=== PATIENT | female | born 1985 ===

== ENCOUNTER 2019-02-25 15:00 | Inpatient (IN) | payer OTHER ==
[~2019-02-25] VITALS: Ht 165.1 cm; Wt 74.4 kg
[2019-03-17] MEDS ORDERED: PRENATABS RX T1 EACH PO (21:49)
== END 2019-03-20 14:59 | disposition home or self-care (01) | DRG 768 ==
LOC: LDR 03-17 18:56 → OB/GYN 03-17 18:56 → LDR 03-17 19:29 → OB/GYN 03-18 21:12
PROVIDERS: ADMIT Obstetrics & Gynecology
PROC: 10E0XZZ Delivery of Products of Conception, External Approach (ICD-10-PCS; principal; 2019-03-17)
PROC: 0DQR0ZZ Repair Anal Sphincter, Open Approach (ICD-10-PCS; 2019-03-17)
PROC: 3E0P7VZ Introduction of Hormone into Female Reproductive, Via Natural or Artificial Opening (ICD-10-PCS; 2019-03-17)
PROC: 3E033VJ Introduction of Other Hormone into Peripheral Vein, Percutaneous Approach (ICD-10-PCS; 2019-03-17)
PROC: 10907ZC Drainage of Amniotic Fluid, Therapeutic from Products of Conception, Via Natural or Artificial Opening (ICD-10-PCS; 2019-03-17)
PROC: 4A1HXCZ Monitoring of Products of Conception, Cardiac Rate, External Approach (ICD-10-PCS; 2019-03-17)
DX: O70.21 Third degree perineal laceration during delivery, IIIa (principal); Z37.0 Single live birth; Z3A.38 38 weeks gestation of pregnancy

== ENCOUNTER 2024-04-22 14:38 | Outpatient (CLI) | payer OTHER ==
[~2024-04-22 14:38] MED LIST: PRENATABS RX T1 EACH PO
== END 2024-04-22 14:40 | disposition home or self-care (01) ==
LOC: PRENATAL 14:38
PROVIDERS: ATTEND Obstetrics & Gynecology Maternal & Fetal Medicine
DX: O44.00 Complete placenta previa NOS or without hemorrhage, unspecified trimester (principal); O09.529 Supervision of elderly multigravida, unspecified trimester; Z3A.21 21 weeks gestation of pregnancy

== ENCOUNTER → 2024-07-08 14:32 | Outpatient (CLI) | payer OTHER | END | disposition home or self-care (01) | LOC: PRENATAL 14:32 | PROVIDERS: ATTEND Obstetrics & Gynecology Maternal & Fetal Medicine | DX: O26.849 Uterine size-date discrepancy, unspecified trimester (principal); O36.8199 Decreased fetal movements, unspecified trimester, other fetus; O09.529 Supervision of elderly multigravida, unspecified trimester; O99.019 Anemia complicating pregnancy, unspecified trimester; Z3A.33 33 weeks gestation of pregnancy ==

== ENCOUNTER 2024-08-19 13:45 | Inpatient (IN) | payer OTHER ==
[~2024-08-19] VITALS: Ht 165.1 cm; Wt 74.8 kg
[2024-08-26] VITALS (10 sets, daily range): BP systolic 111–137; BP diastolic 56–68
[2024-08-26] MEDS ORDERED: RINGERS SOLUTION,LACTATED 1,000 ML IV SCH (06:30)
[2024-08-26] MEDS ORDERED: OXYTOCIN 20 UNITS/500ML RL PIGGYBAG IV ONE (07:11)
[2024-08-26] MEDS ORDERED: FOLIC ACID0.4 MG PO (07:14)
[2024-08-26] MEDS ORDERED: IRON236 MG PO (07:14)
[2024-08-26] MEDS ORDERED: PROBIOTIC250 MG PO (07:14)
[2024-08-26 07:27] LABS: PH,URINE 6.5 (5.0-8.0); URINE APPEARANCE Cloudy; URINE BILIRRUBIN Negative (NEGATIVE); URINE BLOOD Negative; URINE COLOR Yellow; URINE GLUCOSE Negative (NEGATIVE); URINE KETONE Negative (NEGATIVE); URINE LEUKOCYTE Large; URINE NITRATE Negative; URINE PROTEIN Trace (NEGATIVE); URINE UROBILINOGEN 0.2 E.U./dl
[2024-08-26] MEDS ORDERED: OXYTOCIN 500 ML IV SCH (07:30)
[2024-08-26 07:31] LABS: URINE EPITHELIAL CELLS 86.7 uL (0.0-38.8); URINE WBC 671.4 uL (0.0-23.2)
[2024-08-26 07:40] LABS: BASO % 0.5 % (0.1-1.2); EOS # 0.06 (0.04-0.54); HEMATOCRIT 31.9 % (34.1-44.9); LYMPH # 1.53 (1.18-3.74); MEAN CORPUSCULAR HEMOGLOBIN 28.7 pg (25.6-32.2); MONO # 0.43 (0.24-0.82); MONO % 7.3 % (4.7-12.5); NEUT # 3.72 (1.56-6.13); NEUT % 63.3 % (34.0-71.1); PLATELET COUNT 171 K/uL (163-369); RED BLOOD COUNT 3.49 M/uL (3.93-5.22); RED CELL DISTRIBUTION WIDTH 17.7 % (11.6-14.4)
[2024-08-26 07:42] LABS: URINE CAST 0.73 uL (0.0-1.40)
[2024-08-26 08:03] LABS: INR 0.95; PARTIAL THROMBOPLASTIN TIME 24.4 SECONDS (22.0-34.0); PROTHROMBIN TIME 10.4 SECONDS (9.0-11.5)
[2024-08-26 08:13] LABS: ALBUMIN 2.6 gm/dL (3.4-5.0); BILIRUBIN TOTAL 0.27 mg/dL (0.3-1.2); CALCIUM 8.8 mg/dL (8.5-10.1); CREATININE SERUM 0.79 mg/dL (0.55-1.02); GFR 81.89; GLOBULINA 3.2 G/DL (2.4-3.5); POTASSIUM 4.07 mEq/L (3.5-5.1); TOTAL PROTEIN 5.8 gm/dL (6.4-8.2)
[2024-08-26] MEDS ORDERED: MORPHINE SULFATE 4 MG/ML VIAL IV ONE (18:00)
[2024-08-26] MEDS ORDERED: LIDOCAINE HCL 1% 10ML VIAL ONE (20:22)
[2024-08-26] MEDS ORDERED: OXYTOCIN 20 UNITS/1000ML RL PIGGYBAG IV ONE (20:22)
[2024-08-26] MEDS ORDERED: ERYTHROMYCIN BASE OPHT 1GM EACH TUBE OP ONE ×2 (20:22→21:15)
[2024-08-26] MEDS ORDERED: CHLORHEXIDINE GLUCONATE 120 ML BOTTLE TOP ONE (20:22)
[2024-08-26] MEDS ORDERED: IBUprofen 400 MG TABLET PO PRN (21:00)
[2024-08-26] MEDS ORDERED: CHLORHEXIDINE GLUCONATE 120 ML BOTTLE TOP SCH (21:00)
[2024-08-26] MEDS ORDERED: OXYTOCIN 1,000 ML IV SCH (21:00)
[2024-08-26] MEDS ORDERED: LIDOCAINE HCL 1% 10ML VIAL IJ ONE (21:15)
[2024-08-27 01:11] VITALS: BP 118/71
[2024-08-27 09:41] VITALS: BP 100/65
[2024-08-27] MEDS ORDERED: BENZOCAINE/MENTHOL 90 ML BOTTLE TOP SCH (10:00)
[2024-08-27 16:22] VITALS: BP 103/67
[2024-08-28 01:36] VITALS: BP 104/60
[2024-08-28 08:00] VITALS: BP 123/77
== END 2024-08-28 13:04 | disposition home or self-care (01) | DRG 807 ==
LOC: LDR 08-26 06:12 → OB/GYN 08-26 22:51
PROVIDERS: ADMIT Obstetrics & Gynecology; ATTEND Obstetrics & Gynecology
PROC: 10E0XZZ Delivery of Products of Conception, External Approach (ICD-10-PCS; principal; 2024-08-26)
PROC: 0W8NXZZ Division of Female Perineum, External Approach (ICD-10-PCS; 2024-08-26)
PROC: 4A1HXCZ Monitoring of Products of Conception, Cardiac Rate, External Approach (ICD-10-PCS; 2024-08-26)
DX: O69.81X0 Labor and delivery complicated by cord around neck, without compression, not applicable or unspecified (principal); Z37.0 Single live birth; Z3A.39 39 weeks gestation of pregnancy